=== PATIENT | female | born 1935 | race African-American/Black ===

== ENCOUNTER 2017-07-18 09:52 | Day surgery (SDC) | payer OTHER, MEDICAID ==
[2017-07-18] MEDS ORDERED: TETRACAINE 0.5% OPHTH 1 DOSE AFFEYE ONE ×4 (10:30→14:03)
[2017-07-18] MEDS ORDERED: NS 500 ML IV 500 ML IV ONE (10:31)
[2017-07-18] MEDS ORDERED: VIGAMOX 0.5% OPHTH 1 DOSE AFFEYE ONE ×5 (10:35→14:15)
[2017-07-18] MEDS ORDERED: PROLENSA OPHTH 1 DOSE AFFEYE ONE (10:46)
[2017-07-18] MEDS ORDERED: ALPHAGAN-P OPHTH 1 DOSE AFFEYE ONE (10:47)
[2017-07-18] MEDS ORDERED: MYDRIACIL OPHTH 1 DOSE AFFEYE ONE ×3 (10:48→10:50)
[2017-07-18] MEDS ORDERED: AK-DILATE 2.5% OPHTH 1 DOSE OP ONE ×3 (10:48→10:50)
[2017-07-18] MEDS ORDERED: CYCLOGYL 1% OPHTH 1 DOSE OP ONE ×3 (10:48→10:50)
[2017-07-18] MEDS ORDERED: DIPRIVAN VIAL ONE (13:44)
[2017-07-18] MEDS ORDERED: BETADINE OPHTH SOLN 5% EACHEYE ONE (13:52)
[2017-07-18] MEDS ORDERED: XYLOCAINE-MPF 1% IJ ONE ×2 (14:00→14:03)
[2017-07-18] MEDS ORDERED: DUOVISC IO ONE ×2 (14:00→14:03)
[2017-07-18] MEDS ORDERED: ADRENALINE CHL INJ IJ ONE ×2 (14:00→14:03)
[2017-07-18] MEDS ORDERED: BSS OPHTH (PLAIN) 500 ML with VANCOMYCIN HCL 500 MG VIAL 25 MG, ADRENALINE CHL INJ 1 MG IR ONE ×6 (14:01)
[2017-07-18 17:24] VITALS: BP 167/76
== END 2017-07-18 14:40 | disposition home or self-care (01) ==
LOC: SURG1 09:52
PROVIDERS: ATTEND Ophthalmology
PROC: 08DK3ZZ Extraction of Left Lens, Percutaneous Approach (ICD-10-PCS; principal; 2017-07-18 21:00)
PROC: 08RK3JZ Replacement of Left Lens with Synthetic Substitute, Percutaneous Approach (ICD-10-PCS; principal; 2017-07-18 21:00)
DX: H25.12 Age-related nuclear cataract, left eye (principal); H25.012 Cortical age-related cataract, left eye; H52.222 Regular astigmatism, left eye
CPT/HCPCS: 99100; A4217; J0170; J3370; J3490